=== PATIENT | female | born 1980 | race Caucasian/White ===

== ENCOUNTER 2023-10-22 20:11 | Emergency (ER) | payer OTHER, SELFPAY ==
[2023-10-22 20:17] VITALS: BP 165/101
--- NOTE | 2023-10-22 22:20 | ED.GENMED ---
History of Present Illness
General
Chief Complaint: Ear Problem
Source: patient
Exam Limitations: none
Time Seen by Provider: 10/22/23 22:05
Nursing documentation reviewed up to this point in time: agreed with
History of Present Illness
History of Present Illness:
Pleasant 43-year-old female presents with right ear pain and dizziness that has been going on for several months beginning in July or August. Patient is from [place] and has a friend here to help with the translation. [facility] There they started her on fluticasone and steroids. She states that she could not tolerate the steroid so she stopped them. On October 02 she went to [facility] and was started on amoxicillin. She took
that for 10 days with no relief. She was then seen by ear nose and throat at [facility]. She was started again on prednisone but she stopped the next day because she is starting to hallucinate and start to shake. She was sent to an
dock guard and had a normal hearing exam. She went to the family doctor soon after and was started on loratadine which she did not note helped. She went back to [facility] and was given blood testing, CAT scan, and cardiac
testing. She also had a urinalysis. She states every test was normal. Symptoms persisted she went back to urgent care who could not offer her any further advice. Several days later she went back to [facility] emergency
department where they did some more basic testing and told her to get back onto the steroids. They also advised that she follow-up with neurology. She called neurology who stated that they did not have any appointments for several months. She
came here. She states that her symptoms have been persistent but not any more severe. She reports no headache. Denies chest pain or shortness of breath.
Review of Systems
Review of Systems
Allergies reviewed?: Yes
Other source history: other (Friend)
All Other Systems: ROS reviewed and negative except as documented in HPI and ROS
Constitutional: Reports no symptoms
EENT: Reports no symptoms
Respiratory: Reports no symptoms
Cardiac: Reports no symptoms
ABD/GI: Reports no symptoms
: Reports no symptoms
Musculoskeletal: Reports no symptoms
Skin: Reports no symptoms
Neurological: Reports dizzy; Denies headache
Endocrine: Reports no symptoms
Hematologic/Lymphatic: Reports no symptoms
Psychiatric: Reports anxiety
Phy Exam
General Physical Exam
General Presentation: well appearing and no apparent distress
General age: appears stated age
General Skin: warm and dry
General Habitus: normal
General Mental: alert
General Hydration: appears well hydrated
Cardiovascular Exam
Cardiovascular Exam: regular rate/rhythm
Pulmonary Exam
Pulmonary Exam: lungs clear and no respiratory distress
Neurological Exam
Neurological Exam: alert and oriented x3
Musculoskeletal Exam
Musculoskeletal Exam: full ROM
Skin Exam
Skin Exam: normal color and warm/dry
Psychiatric Exam
Psychiatric Exam: normal mood/affect
Course
Orders/Labs/Results
Orders:
Orders
10/22/23 22:20
Dexamethasone Pf [Decadron] 10 mg PO NOW STA
Diazepam [Valium] 5 mg PO NOW STA
Vital Signs
Initial and Last Documented VS:
Initial Vital Signs
Temp Pulse Resp BP Pulse Ox
97.6 F 73 16 165/101 98
10/22/23 20:17 10/22/23 20:17 10/22/23 20:17 10/22/23 20:17 10/22/23 20:17
Last Documented Vital Signs
Temp Pulse Resp BP Pulse Ox
97.6 F 73 16 165/101 98
10/22/23 20:17 10/22/23 20:17 10/22/23 20:17 10/22/23 20:17 10/22/23 20:17
*Critical Care Note
Total Time (30-74mins, 75-104mins- exclusive of procedures): Not Applicable
ED Attending Note
-
Portions of this chart may have been created with voice recognition software.� Occasional wrong word or��sound alike� substitutions may have occurred due to the inherent limitations of voice recognition software.
Discharge Plan
Departure
Patient Disposition: Home (Routine Discharge)
Date of Disposition: 10/22/23
Time of Disposition: 22:27
Patient with high blood pressure during this ER visit?: Yes
Condition: Good
Discharge Problem:
Vertigo
Instructions: Vertigo (a type of dizziness), BLOOD PRESSURE
Prescriptions:
New
diazepam [Valium] 5 mg tablet
5 mg PO HS Qty: 10 0RF
Referrals:
Stephen Maria MD [Active] -
Thelma Cerda DO [Family Provider] -
Activity Restrictions/Additional Instructions:
It was a pleasure meeting you and taking part in your care. We hope for your continued healing and wellness.
Please read discharge instructions in their entirety. However, they are for general education and may not describe your exact diagnosis at discharge. Information on your ER visit and medical conditions were discussed with you along with appropriate
follow up information...
If indicated, please take your medications as instructed and indicated on discharge paperwork.
Please schedule a follow up appointment as directed. Call to schedule an appointment
Please return to the emergency department with ANY change in, persisting, or worsening of symptoms. If any of your symptoms do not improve, or persist, or become more severe within 6-12 hours, please return to the emergency department for further
care.
Please return to the emergency department if you develop a headache, neck pain/stiffness, fever greater than 100.4F, chest pain, shortness of breath, persistent nausea, vomiting, slurred speech, difficulty walking, numbness/tingling, weakness, signs
of infection or any other symptoms that are worrisome to you.
If you have any questions or concerns please do not hesitate to call the Hospital at
Interventions
Interventions:
*Risk Screen - Suicide Last Done: 10/22/23 20:17
*General Assessment Last Done: 10/22/23 20:17
*Neglect/Abuse Screening Last Done: 10/22/23 20:17
Discharge Date and Time
Print Language: SLOVENIAN
[2023-10-22] MEDS: VALIUM 5 MG PO (22:23)
[2023-10-22] MEDS: DECADRON 10 MG PO (22:23)
[2023-10-22 22:30] VITALS: BP 139/99
== END 2023-10-22 22:50 | disposition home or self-care (01) ==
LOC: EMR 20:11
PROVIDERS: EMERGENCY PHYSICIAN Student in an Organized Health Care Education/Training Program; FAMILY PHYSICIAN Family Medicine
DX: R42 Dizziness and giddiness (principal)
CPT/HCPCS: 99282